=== PATIENT | female | born 1995 | race Caucasian/White ===

== ENCOUNTER 2019-08-22 17:57 | Emergency (ER) | payer OTHER, BC ==
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
[2019-08-22] MEDS ORDERED: IBUPROFEN 600 MG TAB PO STA (19:04)
[2019-08-22] MEDS ORDERED: ACETAMINOPHEN TAB 325 MG TAB PO STA (19:05)
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
[2019-08-22 21:08] VITALS: BP 141/83; PULSE 100; RESP 20; TEMP 98
== END 2019-08-22 19:12 | disposition home or self-care (01) ==
LOC: EC 17:57
DX: S20.212A Contusion of left front wall of thorax, initial encounter (principal); S40.012A Contusion of left shoulder, initial encounter; V49.40XA Driver injured in collision with unspecified motor vehicles in traffic accident, initial encounter; Y92.410 Unspecified street and highway as the place of occurrence of the external cause
CPT/HCPCS: 71046; 99284

== ENCOUNTER 2021-06-03 08:36 | Emergency (ER) | payer BC, OTHER ==
[2021-06-03 08:42] VITALS: RESP 18; TEMP 98.7
[2021-06-03 09:25] LABS: Basophils % (A) 0 %; Eosinophils # (A) 0.1 k/uL (0-0.7); Eosinophils % (A) 2 %; HCT 42.6 % (34.0-46.0); HGB 14.8 gm/dL (11.4-16.0); Lymphocytes # (A) 1.5 k/uL (1.0-4.8); Lymphocytes % (A) 16 %; MCH 31.7 pg (25.0-35.0); MCHC 34.9 g/dL (31.0-37.0); MCV 91.1 fL (80.0-100.0); Mean Platelet Volume 7.6; Monocytes # (A) 0.5 k/uL (0-1.0); Monocytes % (A) 6 %; Neutrophils # (A) 7.1 k/uL (1.3-7.7); Neutrophils % (A) 74 %; Platelet Count 239 k/uL (150-450); RBC 4.68 m/uL (3.80-5.40); RDW 12.4 % (11.5-15.5); WBC 9.5 k/uL (3.8-10.6)
--- NOTE | 2021-06-03 09:36 | XR ---
EXAMINATION TYPE: XR chest 2V DATE OF EXAM: 06/03/2021 COMPARISON: 08/22/2019 HISTORY: 25-year-old female with chest pain TECHNIQUE: PA and lateral views FINDINGS: The cardiomediastinal silhouette, aorta, and pulmonary vasculature are within normal limits. Hazy low er lung opacities related to overlying soft tissue. No jolynn consolidation or pleural effusion seen. IMPRESSION: No definite acute process.
[2021-06-03 09:41] LABS: Amorphous Sediment,Urine Rare /hpf; Appearance,Urine Cloudy (Clear); Bacteria,Urine Rare /hpf; Bilirubin,Urine Negative (Negative); Blood,Urine Large (Negative); Color,Urine Light Yellow; Glucose,Urine (UA) Negative (Negative); Ketones,Urine 1+ (Negative); Leukocyte Esterase,Urine Negative (Negative); Mucus,Urine Rare /hpf; Nitrite,Urine Negative (Negative); PH, Urine 5.5 (5.0-8.0); Protein,Urine Negative (Negative); RBC,Urine 3 /hpf (0-5); Specific Gravity,Urine 1.005 (1.001-1.035); Squamous Epithelial Cell,Urine 11 /hpf (0-4); Urobilinogen,Urine <2.0 mg/dL (<2.0); WBC,Urine 3 /hpf (0-5)
[2021-06-03 09:55] LABS: ALT 42 U/L (4-34); African American GFR (CKD) >90 (>60 ml/min/1.73 sqM); Albumin 4.3 g/dL (3.5-5.0); Anion Gap 9 mmol/L; Blood Urea Nitrogen 9 mg/dL (7-17); Calcium 9.5 mg/dL (8.4-10.2); Carbon Dioxide 18 mmol/L (22-30); Chloride 107 mmol/L (98-107); Glucose 157 mg/dL (74-99); Non-African American GFR(CKD) >90 (>60 ml/min/1.73 sqM); Sodium 134 mmol/L (137-145); Total Bilirubin 0.6 mg/dL (0.2-1.3); Total Protein 7.7 g/dL (6.3-8.2)
[2021-06-03 10:04] LABS: AST 42 U/L (14-36); Alkaline Phosphatase 72 U/L (38-126); Magnesium 1.8 mg/dL (1.6-2.3); Potassium 4.4 mmol/L (3.5-5.1)
[2021-06-03 11:04] VITALS: BP 108/78; PULSE 70
--- NOTE | 2021-06-03 11:10 | ED ---
Chest Pain HPI - General Chief Complaint: Chest Pain Stated Complaint: chest tightness Time Seen by Provider: 06/03/21 08:43 Source: patient, RN notes reviewed Mode of arrival: ambulatory Limitations: no limitations - History of Present Illness Initial Comments: Patient is a 25-year-old female with history of type 1 diabetes, presenting to emergency Department with complaints of some chest tightness over the past 2 days. Patient states she was just sitting watching TV last night started having a little bit of chest pressure, she states it radiated up towards the middle of her chest towards her throat. She does have history of indigestion and thought it could be that. She did take some Tylenol and it did help. She states she woke up this morning and it was still there, she took some more Tylenol and it is better right now. She states she wanted to come in for evaluation. She denies any nausea or vomiting, no abdominal pain. She denies any recent fevers or chills, no cough or congestion. She does not believe she is . She has no further complaints. Patient was slightly tach and arrival 116, rest of vitals were normal. Patient states she is very anxious. - Related Data Home Medications Medication Instructions Recorded Confirmed Acetaminophen Tab [Tylenol Tab] 1,000 mg PO ONCE PRN 06/03/21 06/03/21 Insulin Aspart (For Pump) [NovoLOG 0.01 unit SQ-PUMP CONTINUOUS 06/03/21 06/03/21 (For Pump)] Norethindrone-E.estradiol-Iron 1 tab PO HS 06/03/21 06/03/21 [Junel Fe 1.5 mg-30 Mcg Tablet] Omeprazole 20 mg PO DAILY PRN 06/03/21 06/03/21 Allergies Allergy/AdvReac Type Severity Reaction Status Date / Time No Known Allergies Allergy Verified 06/03/21 10:13 Review of Systems ROS Statement: Those systems with pertinent positive or pertinent negative responses have been documented in the HPI. ROS Other: All systems not noted in ROS Statement are negative. EKG Findings - EKG Comments: EKG Findings:: Sinus tachycardia, otherwise normal ECG, no signs of acute ST segment change. Ventricular rate 107, DC interval 130, QT 342. Past Medical History Past Medical History: Diabetes Mellitus History of Any Multi-Drug Resistant Organisms: None Reported Additional Past Surgical History / Comment(s): jaw surgery Past Psychological History: No Psychological Hx Reported Smoking Status: Never smoker Past Alcohol Use History: Occasional Past Drug Use History: None Reported General Exam - General Exam Comments Initial Comments: GENERAL: Patient is well-developed and well-nourished. Patient is nontoxic and in no acute distress. HEAD: Atraumatic, normocephalic. EYES: Pupils equal round and reactive to light, extraocular movements intact, sclera anicteric, conjunctiva are normal. Eyelids were unremarkable. ENT: Nares patent, oropharynx clear without exudates. Moist mucous membranes. NECK: Normal range of motion, supple without lymphadenopathy or JVD. LUNGS: Unlabored respirations. Breath sounds clear to auscultation bilaterally and equal. No wheezes rales or rhonchi. HEART: Regular rate and rhythm without murmurs, rubs or gallops. ABDOMEN: Soft, nontender, normoactive bowel sounds. No guarding, no rebound. No masses appreciated. MUSCULOSKELETAL: Normal extremities with adequate strength and normal range of motion, no pitting or edema. No clubbing or cyanosis. NEUROLOGICAL: Patient is alert and oriented x 3. Symmetrical smile. Normal speech, normal gait. PSYCH: Normal mood, normal affect. SKIN: Warm, Dry, normal turgor, no rashes or lesions noted. Limitations: no limitations Course Vital Signs 06/03/21 06/03/21 08:38 11:03 Temperature 98.7 F Pulse Rate 116 H 70 Respiratory 18 18 Rate Blood Pressure 147/95 108/78 O2 Sat by Pulse 100 100 Oximetry Chest Pain [facility] Patient is a 25-year-old female with history of type 1 diabetes, presenting with intermittent chest pain since yesterday. No fevers or chills, vital signs are stable except for some mild tachycardia however patient is very nervous. EKG showed no acute findings, patient's lab work is unremarkable including a normal troponin, normal d-dimer. Her chest x-ray is unremarkable. His vital signs were rechecked and are completely normal. I discussed these findings with her. Did recommend follow-up with her primary care regarding these symptoms. She can continue to take Tylenol for any discomfort. I also recommended omeprazole as she does have a history of acid reflex. Strict return parameters were discussed with her and she verbalized understanding. Case discussed with Dr. Arnold. Disposition Clinical Impression: Atypical chest pain Disposition: HOME SELF-CARE Condition: Stable Instructions (If sedation given, give patient instructions): Chest Pain (ED) Additional Instructions: Please return to the Emergency Department if symptoms worsen or any other concerns. May take Tylenol for any discomfort, recommend trial of omeprazole. Follow up with your primary care. Is patient prescribed a controlled substance at d/c from ED?: No Referrals: Sukhdeep Tate MD [Primary Care Provider] - 1-2 days Time of Disposition: 11:10
== END 2021-06-03 11:51 | disposition home or self-care (01) ==
LOC: EC 08:36
DX: R07.89 Other chest pain (principal); E10.9 Type 1 diabetes mellitus without complications; Z72.89 Other problems related to lifestyle; Z79.4 Long term (current) use of insulin
CPT/HCPCS: 36415; 71046; 80053; 81001; 81025; 83735; 84484; 85025; 85379; 93005; 99285